=== PATIENT | female | born 1940 | race Caucasian/White ===

== ENCOUNTER 2020-10-14 07:00 | Outpatient (CLI) | payer MEDICARE, BC ==
[~2020-10-14] VITALS: Ht 167.6 cm; Wt 95.7 kg
[2020-10-14] VITALS (20 sets, daily range): BP systolic 106–167; BP diastolic 46–96; PULSE 61–88
[~2020-10-14 07:00] MED LIST: ASPIRIN E.C. 8181 MG PO; LIPITOR20 MG PO; MURO 128 5% OPH15 ML OU
--- NOTE | 2020-10-14 09:19 | NUR ---
Pt arrived to room 9 via cart.Report from Mima King.Patient on oxygen at 2l via nasal cannula upon arrival.
--- NOTE | 2020-10-14 12:00 | NUR ---
Discharge instructions given to pt.pt verbalizes understanding.Pt escortedout via wheelchair by BANDAR RN.
[2020-10-25] MEDS ORDERED: FLONASE NASAL S16 GM NS (09:01)
== END 2020-10-14 13:46 | disposition home or self-care (01) ==
LOC: COL.RAD 07:00
DX: R91.8 Other nonspecific abnormal finding of lung field (principal)
CPT/HCPCS: 32120

== ENCOUNTER → 2020-10-28 | Outpatient (CLI) | payer MEDICARE, BC ==
[~2020-10-28] VITALS: Ht 167.6 cm; Wt 94.1 kg
[~2020-10-28] MED LIST changes: +CARDIZEM CD 12120 MG PO; +FLONASE NASAL S16 GM NS; +LASIX 20MG TABL20 MG PO
[2020-10-28 10:02] VITALS: BP 153/77; PULSE 75
[2020-10-28 11:10] VITALS: BP 133/56; PULSE 71
[2020-10-28 11:25] VITALS: BP 132/62; PULSE 67
[2020-10-28 11:40] VITALS: BP 116/53; PULSE 66
[2020-10-28 11:55] VITALS: BP 118/51; PULSE 67
[2020-10-28 12:10] VITALS: BP 117/51; PULSE 79
== END ==
LOC: COL.RAD
DX: C79.72 Secondary malignant neoplasm of left adrenal gland (principal); C34.11 Malignant neoplasm of upper lobe, right bronchus or lung; Z98.890 Other specified postprocedural states
CPT/HCPCS: 32107

== ENCOUNTER → 2020-11-01 | Outpatient (CLI) | payer MEDICARE, BC | LOC: COL.PUL 08:00 | DX: C34.11 Malignant neoplasm of upper lobe, right bronchus or lung (principal) ==

== ENCOUNTER → 2020-11-01 | Outpatient (CLI) | payer MEDICARE, BC | LOC: MC.RAD 11:07 | DX: C34.11 Malignant neoplasm of upper lobe, right bronchus or lung (principal); N63.20 Unspecified lump in the left breast, unspecified quadrant ==

== ENCOUNTER → 2020-11-26 | Outpatient (CLI) | payer MEDICARE, BC | LOC: MC.RAD 11-06 13:00 | DX: N63.20 Unspecified lump in the left breast, unspecified quadrant (principal); Z85.118 Personal history of other malignant neoplasm of bronchus and lung ==

== ENCOUNTER 2020-12-13 06:16 | Day surgery (SDC) | payer MEDICARE, BC ==
[~2020-12-13] VITALS: Ht 167.6 cm; Wt 90.5 kg
[2020-12-13] VITALS (9 sets, daily range): BP systolic 98–126; BP diastolic 47–89; PULSE 72–146; TEMP 98.1
[~2020-12-13 06:16] MED LIST changes: -CARDIZEM CD 12120 MG PO; -LASIX 20MG TABL20 MG PO
[2020-12-13] MEDS ORDERED: CARDIZEM CD 12120 MG PO (08:34)
[2020-12-13] MEDS ORDERED: LASIX 20MG TABL20 MG PO (08:35)
--- NOTE | 2020-12-13 10:53 | NUR ---
0840 Pt remains in room post procedure to prepare for discharge. Pt coughing. Pt desires to wait to have anything to eat or drink. Pt denies pain or nausea. Pt drowsy but answering all questions appropriately. 0900 Pt requests water and applesauce. Repositioned so that she's sitting on the side of the cart with a bedside table in front of her for eating/drinking. 0915 Pt continues to cough but states she's doing well. HR continues to be elevated in the 130s to 160s. HR doesn't slow intermittently as prior to procedure. [address] Robertson regarding HR which remains elevated without slowing. Pt has no complaints. Dr. Robertson orders an EKG and Lopressor 2.5mg IV now. 0941 Call to RT for EKG. [address] Robertson. Pt's HR now has periods of slowing to the 90s to 100s. Following this, it increases again to 130s to 160s. Ask Dr. Robertson if he still wants the Lopressor. Dr. Robertson confirms he does. 0950 Call to Pharmacy to double check Lopressor, dosing, and applicability to this condition. Pharmacist, Vadim, confirms that this is appropriate. 0958 Call pt's brother, Pablo, to update him on the current situation. 1000 Dr. Robertson arrives to review situation with pt as well as EKG. During this visit, Dr. Robertson communicates with Dr. Rico regarding this pt's condition and the imminent need for follow-up regarding her history and current presentation of a. fib. Dr. Rico's office will set up an appointment for the pt next week. Dr. 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 The encourages the pt to seek medical help when she feels her heart racing. The pt states that she doesn't notice when it races. She states she feels the same. During this time, the pt's HR has remained consistently between [address] Robertson encourages the pt that whenever notices any signs of her heart racing, she needs to notify medical personnel. 1022 Dr. Robertson leaves the room from his visit with this pt. Following this, the pt is tired. This RN mentions to the pt that possibly her sleepiness could be due to her heart racing for this past hour. This RN explains that maybe that could be one of the signs she notices when her heart is racing and she doesn't feel it. We also talked about feeling radial and carotid pulses occasionally to assess what is happening. The pt voices understanding. 1030 Discharge instructions reviewed with pt. Given to pt are a thank you card and the DC instructions. All questions answered to her satisfaction. 1040 Call again to Pablo to update him. 1053 Pt transferred out of hospital via wheelchair and this RN to private vehicle driven by brother. Upon meeting brother outside hospital, this RN and the pt's brother visit about what the pt, Dr. Robertson, and I had visited about. Various questions answered to his satisfaction.
== END 2020-12-13 10:53 | disposition home or self-care (01) ==
LOC: SDCO 06:16
DX: C34.11 Malignant neoplasm of upper lobe, right bronchus or lung (principal); J96.11 Chronic respiratory failure with hypoxia; I48.0 Paroxysmal atrial fibrillation; I10 Essential (primary) hypertension; I48.91 Unspecified atrial fibrillation; R78.5 Finding of other psychotropic drug in blood; J44.9 Chronic obstructive pulmonary disease, unspecified; K21.9 Gastro-esophageal reflux disease without esophagitis; M19.90 Unspecified osteoarthritis, unspecified site; F32.9 Major depressive disorder, single episode, unspecified; Z87.891 Personal history of nicotine dependence; Z79.82 Long term (current) use of aspirin; Z79.899 Other long term (current) drug therapy; Z88.0 Allergy status to penicillin
CPT/HCPCS: J2704; J7512